=== PATIENT | female | born 1960 | race African-American/Black ===

== ENCOUNTER → 2016-12-19 | Day surgery (SDC) | payer OTHER ==
--- NOTE | 2016-12-20 17:03 | PATH ---
Surgical Pathology Report Patient Name: [facility]. Rec. #: [id number] /Age/Gender: 1960 (Age: 56) / F Account: [id number] Location: [facility] Taken: 12/19/2016 Received: 12/19/2016 Reported: 12/20/2016 Physicians: Michael Chatman M.D. Specimen(s) Received RIGHT BREAST DENSITY (MASS) STEREOTACTIC BIOPSY Clinical History Nonpalpable lesion Mammographic findings: Suspicious Final Diagnosis BREAST, RIGHT, DENSITY (MASS), STEREOTACTIC BIOPSY: BENIGN BREAST TISSUE SHOWING FIBROCYSTIC CHANGES INCLUDING PROMINENT CYSTIC APOCRINE METAPLASIA AND FEW ECTATIC DUCTS. Electronically Signed Maryanne Martinez M.D. Gross Description Received in formalin labeled "right breast with density (mass)," is a 2.5 x 2.1 x 0.3 cm aggregate of multiple singh-yellow, irregular to cylindrical portions of fibroadipose tissue. The specimen is entirely submitted in one cassette. Time to formalin fixation: 5 minutes Total formalin fixation time: Approximately 9 hours. 12/19/2016 saudi12/19/2016
== END | disposition home or self-care (01) ==
LOC: FMAMMOTONE 08:07
PROVIDERS: ATTEND Surgery Surgical Oncology
PROC: 0HBT3ZX Excision of Right Breast, Percutaneous Approach, Diagnostic (ICD-10-PCS; principal; 2016-12-19)
DX: N60.11 Diffuse cystic mastopathy of right breast (principal); N64.89 Other specified disorders of breast; N63 Unspecified lump in breast
CPT/HCPCS: 19081; 88305-TC; A4648

== ENCOUNTER 2017-11-28 10:21 | Emergency (ER) | payer OTHER ==
--- NOTE | 2017-11-28 11:07 | PDOC ---
History of Present Illness - General Chief Complaint: Pain Stated Complaint: RIGHT KNEE PAIN Time Seen by Provider: 11/28/17 10:23 History Source: Patient Exam Limitations: No Limitations - History of Present Illness Initial Comments: 11/28/17 11:06 57y F hx of arhtirits, htn, dm, hypothyroidism presents with R posterior knee pain. pt notes chronic pain at [place] but yesterday pain was more painful, and was burnming and radiated up to her hip and down to foot and is worse when she straightnes her leg and improved when she bends her knee. Pt denies any trauma/ falls or injuries. but notes thyat last week when she was at work she got up to stand and felt her R knee lock up. After she stood up she felt alittle sore since. This morning pain was improved but she abdias for evaluation. pt denies any increased edema, calf pain, sob, cough, n/v, abd pain, hemoptysis. pt took a motrin at home yesterday with some improvement of her symtoms. Ortho: Lent Past History - Past Medical History Allergies/Adverse Reactions: Allergies Allergy/AdvReac Type Severity Reaction Status Date / Time No Known Allergies Allergy Verified 11/28/17 11:20 Home Medications: Ambulatory Orders Aspirin 81 mg PO DAILY 08/06/12 Levothyroxine [Synthroid -] 100 mcg PO DAILY 08/06/12 Telmisartan [Micardis] 12.5 mg PO DAILY 08/06/12 propRANOLol HCL [Inderal -] 40 mg PO DAILY 08/06/12 metFORMIN HCL [Metformin HCl] 500 mg PO BID 11/28/17 Anemia: No Asthma: No Cancer: No Cardiac Disorders: Yes (ANGINA, PALPITATION) CVA: No COPD: No CHF: No Dementia: No Diabetes: No GI Disorders: No Disorders: No HTN: Yes Hypercholesterolemia: No Liver Disease: No Seizures: No Thyroid Disease: Yes (hypothyroidism) - Surgical History Abdominal Surgery: Yes (UMBILICAL HERNIA REPAIR) Appendectomy: No Cardiac Surgery: No Cholecystectomy: No Lung Surgery: No Neurologic Surgery: No Orthopedic Surgery: Yes (right knee arthroscopy) - Suicide/Smoking/Psychosocial Hx Smoking Status: No Smoking History: Never smoked Have you smoked in the past 12 months: No Number of Cigarettes Smoked Daily: 0 Hx Alcohol Use: No Drug/Substance Use Hx: No Substance Use Type: None Hx Substance Use Treatment: No Review of Systems - Review of Systems Able to Perform ROS?: Yes Comments:: 11/28/17 11:49 Constitutional - no reported Fever, Chills, Musculskelatal - +R knee pain no reported back pain, joint swelling skin - no reported bruising, erythema, rash neurological: no reported numbness, focal weakness, tingling, hematologic: no reported easy bruising, easy bleeding *Physical Exam - Physical Exam Comments: 11/28/17 11:51 GENERAL: The patient is awake, alert, and fully oriented, Nontoxic - in no acute distress. EXTREMITIES: Normal range of motion, no edema. no calf tenderness, neg homans, normal RO of R knee, normal gait PSYCH: Normal mood, normal affect. SKIN: Warm, Dry, normal turgor, Medical Decision Making - Medical Decision Making 11/28/17 12:03 suspect possible mild effusion no signs of dvt no clinical history or suspicion of acute bony injury will obtain xray to r/o arhtritis motrin for pain will have pt fu with ortho retur nprecautions were discussed I discussed the physical exam findings, ancillary test results and final diagnoses with the patient. I answered all of the patient's questions. The patient was satisfied with the care received and felt comfortable with the discharge plan and treatment plan. The patient will call their primary care physician within 24 hours to arrange follow-up and will return to the Emergency Department with any new, persistent or worsening symptoms. 11/28/17 13:36 xray neg. will dc w outpatient fu *DC/Admit/Observation/Transfer Diagnosis at time of Disposition: Knee pain, right Qualifiers: Chronicity: chronic Qualified Code(s): M25.561 - Pain in right knee - Discharge Dispostion Disposition: HOME Condition at time of disposition: Good Decision to Admit order: No - Referrals Referrals: Donnell Jones MD [Primary Care Provider] - Cristhian Mcwilliams MD [Staff Physician] - - Patient Instructions Printed Discharge Instructions: DI for Knee Pain Additional Instructions: Return to the emergency department immediately with ANY new, persistent or worsening symptoms. Take tylenol or motrin as needed for pain. Rest, keep your leg elevated You MUST call and follow up with your doctor and orthopedic in 5-6 days for further evaluation of your symptoms. Results were discussed with you. Please make sure your doctor reviews the results of your emergency evaluation. Print Language: IVORIAN - Post Discharge Activity
[2017-11-28 11:25] VITALS: BP 146/85; PULSE 70; TEMP 98.3; BMI 33.6
[2017-11-28] MEDS ORDERED: IBUPROFEN 400 MG TABLET (FP) PO ONE ×2 (11:45→11:48)
== END 2017-11-28 13:42 | disposition home or self-care (01) ==
LOC: FER 10:21
DX: M25.561 Pain in right knee (principal); E03.9 Hypothyroidism, unspecified; I10 Essential (primary) hypertension; E11.9 Type 2 diabetes mellitus without complications; M19.90 Unspecified osteoarthritis, unspecified site
CPT/HCPCS: 73562-TC-RT-FY; 99282-25

== ENCOUNTER 2018-06-24 08:04 | Day surgery (SDC) | payer OTHER ==
[2018-06-23 14:32] VITALS: BMI 36.3
[2018-06-24 09:39] VITALS: TEMP 97.5
[2018-06-24 10:23] VITALS: BP 119/67; PULSE 55
--- NOTE | 2018-06-25 16:43 | PATH ---
Surgical Pathology Report Patient Name: [facility]. Rec. #: [id number] /Age/Gender: 1960 (Age: 58) / F Account: [id number] Location: [facility] Taken: 06/24/2018 Received: 06/24/2018 Reported: 06/25/2018 Physicians: Khoi Fox M.D. Specimen(s) Received A: BX DUODENUM B: BX ANTRUM C: POLYP RIGHT COLON D: POLYP PROXIMAL TRANSVERSE COLON E: POLYP SIGMOID COLON Clinical History Adenoma surveillance, epigastric pain Postoperative diagnosis: Gastritis, duodenitis, hiatal hernia, colon polyps, diverticulosis Final Diagnosis A. DUODENUM, SECOND PORTION AND BULB, BIOPSY: DUODENAL MUCOSA WITH MILD TO MODERATE ACUTE AND CHRONIC DUODENITIS. B. STOMACH, ANTRUM, BIOPSY: GASTRIC ANTRAL MUCOSA WITH MILD CHRONIC GASTRITIS. IMMUNOHISTOCHEMICAL STAIN FOR H. PYLORI IS NEGATIVE. C. COLON, RIGHT, POLYP, POLYPECTOMY: TUBULAR ADENOMA. D. PROXIMAL TRANSVERSE COLON, POLYPECTOMY: TUBULAR ADENOMA. E. SIGMOID COLON, BIOPSY: COLONIC MUCOSA WITH FOCAL SUPERFICIAL HYPERPLASTIC FEATURES. Electronically Signed Britany Ac M.D. Gross Description A. Received in formalin, labeled "biopsy second portion of duodenum and bulb" are 2 singh, irregular portions of soft tissue averaging 0.4 cm. in greatest dimension. The specimens are submitted in toto in one cassette. B. Received in formalin, labeled "biopsy antrum" are 4 singh, irregular portions of soft tissue ranging from 0.3-0.7 cm. in greatest dimension. The specimens are submitted in toto in one cassette. C. Received in formalin, labeled "polyp right colon" is a singh, irregular portion of soft tissue measuring 0.4 cm. in greatest dimension. The specimen is submitted in toto in one cassette. D. Received in formalin, labeled "polyp proximal transverse" is a singh, irregular portion of soft tissue measuring 0.5 cm. in greatest dimension. The specimen is submitted in toto in one cassette. E. Received in formalin, labeled "polyp sigmoid colon" is a singh, irregular portion of soft tissue measuring 0.5 cm. in greatest dimension. The specimen is submitted in toto in one cassette. /06/24/2018 saudi06/24/2018
== END 2018-06-24 10:34 | disposition home or self-care (01) ==
LOC: JASU-ENDO 08:04
PROVIDERS: ATTEND Internal Medicine Gastroenterology
PROC: 0DBL8ZX Excision of Transverse Colon, Via Natural or Artificial Opening Endoscopic, Diagnostic (ICD-10-PCS; 2018-06-24)
PROC: 0DBN8ZX Excision of Sigmoid Colon, Via Natural or Artificial Opening Endoscopic, Diagnostic (ICD-10-PCS; 2018-06-24)
PROC: 0DB98ZX Excision of Duodenum, Via Natural or Artificial Opening Endoscopic, Diagnostic (ICD-10-PCS; 2018-06-24)
PROC: 0DB68ZX Excision of Stomach, Via Natural or Artificial Opening Endoscopic, Diagnostic (ICD-10-PCS; 2018-06-24)
PROC: 0DBK8ZX Excision of Ascending Colon, Via Natural or Artificial Opening Endoscopic, Diagnostic (ICD-10-PCS; principal; 2018-06-24 08:45)
DX: Z12.11 Encounter for screening for malignant neoplasm of colon (principal); D12.2 Benign neoplasm of ascending colon; D12.5 Benign neoplasm of sigmoid colon; D12.3 Benign neoplasm of transverse colon; K57.30 Diverticulosis of large intestine without perforation or abscess without bleeding; K64.8 Other hemorrhoids; Z86.010 Personal history of colon polyps; K25.9 Gastric ulcer, unspecified as acute or chronic, without hemorrhage or perforation; K44.9 Diaphragmatic hernia without obstruction or gangrene; K29.70 Gastritis, unspecified, without bleeding; K29.80 Duodenitis without bleeding; E11.9 Type 2 diabetes mellitus without complications; Z79.84 Long term (current) use of oral hypoglycemic drugs; I10 Essential (primary) hypertension; E66.01 Morbid (severe) obesity due to excess calories; E03.9 Hypothyroidism, unspecified
CPT/HCPCS: 88305-TC; 88342-TC

== ENCOUNTER 2022-04-06 10:04 | Emergency (ER) | payer OTHER ==
[2022-04-06 10:08] VITALS: BP 121/50; PULSE 78; RESP 18; TEMP 98.9; BMI 32.2
[2022-04-06] MEDS ORDERED: IBUPROFEN 600 MG TABLET (FP) PO ONE (11:19)
[2022-04-06] MEDS ORDERED: ACETAMINOPHEN 500 MG TABLET (FP) PO ONE (11:19)
[2022-04-06] MEDS ORDERED: ALBUTEROL SO4 HFA INHALER IH ONE ×2 (12:11→12:19)
[2022-04-06] MEDS ORDERED: predniSONE 20 MG TABLET (UD) PO ONE (12:12)
[2022-04-06] MEDS ORDERED: predniSONE 20 MG TABLET (UD) ONE (12:19)
== END 2022-04-06 12:43 | disposition home or self-care (01) ==
LOC: JER 10:04
PROC: 3E0F7GC Introduction of Other Therapeutic Substance into Respiratory Tract, Via Natural or Artificial Opening (ICD-10-PCS; principal; 2022-04-06)
DX: J40 Bronchitis, not specified as acute or chronic (principal)
CPT/HCPCS: 0241U-QW; 71046-TC-FY; 99284-25